=== PATIENT | male | born 1940 | race Caucasian/White ===

== ENCOUNTER → 2017-01-06 | Outpatient (CLI) | payer MEDICARE, BC | END | disposition home or self-care (01) | LOC: CFH 10:04 | PROVIDERS: ATTEND Nurse Practitioner Family | DX: Z13.820 Encounter for screening for osteoporosis (principal); M81.0 Age-related osteoporosis without current pathological fracture; S32.010A Wedge compression fracture of first lumbar vertebra, initial encounter for closed fracture; X58.XXXA Exposure to other specified factors, initial encounter; Y93.89 Activity, other specified; Y92.89 Other specified places as the place of occurrence of the external cause; Y99.8 Other external cause status | CPT/HCPCS: 77080 ==

== ENCOUNTER 2017-03-27 10:12 | Inpatient (IN) | payer MEDICARE, BC ==
[~2017-03-27] VITALS: Ht 185.4 cm; Wt 71.8 kg
[2017-03-27] MEDS ORDERED: ATOR10TA PO (10:31)
[2017-03-27] MEDS ORDERED: CARB1TAB22 PO (10:31)
[2017-03-27] MEDS ORDERED: METO50TA82 PO (10:31)
[2017-03-27] MEDS ORDERED: ASPI-515 PO (10:31)
[2017-03-27] MEDS ORDERED: ZOLE5INF IV (10:31)
[2017-03-27] MEDS ORDERED: CALC1CAP8 PO (10:31)
[2017-03-27] MEDS ORDERED: HYDROcodone/APAP 5/325 TABLET PO PRN (11:30)
[2017-03-27] MEDS ORDERED: KETOROLAC 30 MG/1 ML IM ONE (11:30)
[2017-03-27] MEDS ORDERED: HYDROcodone/APAP 5/325 TABLET ONE (11:46)
[2017-03-27] MEDS ORDERED: KETOROLAC 30 MG/1 ML ONE (11:46)
[2017-03-27 16:54] LABS: BLOOD UREA NITROGEN 13 mg/dL (7-18)
[2017-03-27] MEDS ORDERED: ONDANSETRON ODT 4 MG PO PRN (18:00)
[2017-03-27] MEDS ORDERED: ONDANSETRON 2MG/ML, 2ML IVPush PRN (18:00)
[2017-03-27] MEDS ORDERED: ACETAMINOPHEN 325 MG TABLET PO PRN (18:00)
[2017-03-27] MEDS ORDERED: MORPHINE SULFATE 4 MG/ML, 1ML IV PRN (18:30)
[2017-03-27] MEDS: PLEASE ENTER ALLERGIES MC SCH ×4 (19:21→19:22)
[2017-03-27] MEDS: CALCIUM/VITAMIN D3 250-125 TABLET PO SCH (20:47)
[2017-03-27] MEDS: HEPARIN 5,000 UNITS/ML, 1ML SQ SCH (20:48)
[2017-03-27] MEDS: ATORVASTATIN 10 MG TABLET PO SCH (20:48)
[2017-03-27 21:10] VITALS: BP 147/88
[2017-03-28 00:41] VITALS: BP 137/82
[2017-03-28] MEDS: HEPARIN 5,000 UNITS/ML, 1ML SQ SCH ×3 (05:34→20:02)
[2017-03-28 06:22] LABS: BLOOD UREA NITROGEN 21 mg/dL (7-18)
[2017-03-28 06:27] LABS: ASPARTATE AMINO TRANSFERASE 17 U/L (15-37)
[2017-03-28 08:00] VITALS: BP 156/88
[2017-03-28] MEDS: CARBIDOPA/LEVODOPA 25 MG/100 MG TABLET PO SCH (10:05)
[2017-03-28] MEDS: CALCIUM/VITAMIN D3 250-125 TABLET PO SCH ×2 (10:06→20:02)
[2017-03-28] MEDS: METOPROLOL TARTRATE 50 MG TABLET PO SCH (10:06)
[2017-03-28] MEDS: ASPIRIN 81 MG TABLET EC PO SCH (10:06)
[2017-03-28 12:00] VITALS: BP 160/93
[2017-03-28] MEDS ORDERED: POLYETHYLENE GLYCOL 17 GM PACKET NG ONE (12:00)
[2017-03-28 19:37] VITALS: BP 141/85
[2017-03-28] MEDS: ATORVASTATIN 10 MG TABLET PO SCH (20:02)
[2017-03-29 01:20] VITALS: BP 153/90
[2017-03-29] MEDS: HEPARIN 5,000 UNITS/ML, 1ML SQ SCH ×3 (05:55→20:08)
[2017-03-29 07:27] VITALS: BP 148/87
[2017-03-29] MEDS: ASPIRIN 81 MG TABLET EC PO SCH (08:40)
[2017-03-29] MEDS: METOPROLOL TARTRATE 50 MG TABLET PO SCH (08:40)
[2017-03-29] MEDS: CARBIDOPA/LEVODOPA 25 MG/100 MG TABLET PO SCH (08:41)
[2017-03-29] MEDS: CALCIUM/VITAMIN D3 250-125 TABLET PO SCH ×2 (08:41→20:08)
[2017-03-29 13:51] VITALS: BP 129/77
[2017-03-29 19:57] VITALS: BP 131/80
[2017-03-29] MEDS: ATORVASTATIN 10 MG TABLET PO SCH (20:08)
[2017-03-30 02:57] VITALS: BP 137/81
[2017-03-30] MEDS: HEPARIN 5,000 UNITS/ML, 1ML SQ SCH (06:22)
[2017-03-30 06:48] VITALS: BP 150/86
[2017-03-30] MEDS: CALCIUM/VITAMIN D3 250-125 TABLET PO SCH (08:01)
[2017-03-30] MEDS: ASPIRIN 81 MG TABLET EC PO SCH (08:01)
[2017-03-30] MEDS: CARBIDOPA/LEVODOPA 25 MG/100 MG TABLET PO SCH (08:02)
[2017-03-30] MEDS: METOPROLOL TARTRATE 50 MG TABLET PO SCH (08:02)
== END 2017-03-30 11:15 | disposition home or self-care (01) | DRG 543 ==
LOC: ED 10:56 → EDIP 16:45 → 3NE 18:52
PROVIDERS: ADMIT Internal Medicine; ATTEND Internal Medicine
DX: M80.08XA Age-related osteoporosis with current pathological fracture, vertebra(e), initial encounter for fracture (principal); E44.1 Mild protein-calorie malnutrition; S32.10XA Unspecified fracture of sacrum, initial encounter for closed fracture; G20 Parkinson's disease; G89.29 Other chronic pain; I10 Essential (primary) hypertension; I25.10 Atherosclerotic heart disease of native coronary artery without angina pectoris; K59.00 Constipation, unspecified; M48.06 Spinal stenosis, lumbar region; M53.3 Sacrococcygeal disorders, not elsewhere classified; M54.16 Radiculopathy, lumbar region; E78.5 Hyperlipidemia, unspecified; W19.XXXA Unspecified fall, initial encounter; Z95.5 Presence of coronary angioplasty implant and graft; Y93.89 Activity, other specified; Y92.89 Other specified places as the place of occurrence of the external cause; Z79.82 Long term (current) use of aspirin; Z79.899 Other long term (current) drug therapy; Z68.20 Body mass index [BMI] 20.0-20.9, adult
CPT/HCPCS: 36415; 72110; 72148; 72192; 80048; 80053; 81003; 82040; 85025; 96372; J1644; J1885

== ENCOUNTER 2018-02-02 11:22 | Inpatient (IN) | payer MEDICARE, BC ==
[~2018-02-02] VITALS: Ht 185.4 cm; Wt 78.4 kg
[~2018-02-02 11:22] MED LIST: ASPI-515 PO; ATOR10TA PO; CALC1CAP8 PO; CARB1TAB22 PO; METO50TA82 PO; ZOLE5INF IV
[2018-02-02] MEDS ORDERED: SODIUM CHLORIDE 0.9% 1,000 ML IV ONE (13:44)
[2018-02-02] MEDS ORDERED: SODIUM CHLORIDE FLUSH 10ML SYR IVF ONE (14:00)
[2018-02-02] MEDS ORDERED: MORPHINE SULFATE 4 MG/ML, 1ML IVPush PRN ×2 (14:00→15:30)
[2018-02-02 14:13] LABS: BASOPHILS # (AUTO) 0.02 x10^3/uL (0-0.1); BASOPHILS % (AUTO) 0 % (0-1); EOSINOPHILS # (AUTO) 0.02 x10^3/uL (0-0.4); EOSINOPHILS % (AUTO) 0 % (1-7); LYMPHOCYTES # (AUTO) 1.07 x10^3/uL (1-3.4); LYMPHOCYTES % (AUTO) 10 % (22-44); MD NO; MEAN CORPUSCULAR HEMOGLOBIN 31.4 pg (27.5-34.5); MEAN CORPUSCULAR HGB CONC 33.5 g/dL (33.2-36.2); MEAN CORPUSCULAR VOLUME 93.6 fL (81-97); MEAN PLATELET VOLUME 9.9 fL (7.4-10.4); MONOCYTES # (AUTO) 0.85 x10^3/uL (0.2-0.8); MONOCYTES % (AUTO) 8 % (2-9); NEUTROPHILS # (AUTO) 8.34 x10^3/uL (1.8-6.8); NEUTROPHILS % (AUTO) 81 % (42-75); PLATELET COUNT 114 x10^3/uL (130-400); RED BLOOD COUNT 4.68 x10^6/uL (4.38-5.82); RED CELL DISTRIBUTION WIDTH 13.2 % (9.4-14.8)
[2018-02-02 14:19] LABS: INTERNATIONAL NORMALIZED RATIO 1.04 (0.93-1.1); PROTHROMBIN TIME 10.8 Seconds (9.6-11.5)
[2018-02-02 14:23] LABS: ALBUMIN 3.4 g/dL (3.4-5.0); ANION GAP 8 mmol/L (5-15); CALCIUM 8.4 mg/dL (8.5-10.1); CHLORIDE 107 mmol/L (98-107)
[2018-02-02 14:24] LABS: CREATININE 0.89 mg/dL (0.7-1.3)
[2018-02-02] MEDS ORDERED: BISACODYL 10 MG SUPP PR PRN (14:30)
[2018-02-02] MEDS ORDERED: ONDANSETRON 2MG/ML, 2ML IVPush PRN ×2 (14:30→18:30)
[2018-02-02] MEDS ORDERED: ONDANSETRON ODT 4 MG PO PRN (14:30)
[2018-02-02] MEDS ORDERED: morphine SULFATE 10 MG/ML, 1ML IVPush PRN ×2 (14:30→18:30)
[2018-02-02] MEDS ORDERED: FENTANYL PF 250 MCG/5ML ONE (15:06)
[2018-02-02] MEDS ORDERED: PROPOFOL 10 MG/ML, 20ML ONE (15:07)
[2018-02-02] MEDS ORDERED: ROCURONIUM 10MG/ML,5ML ONE (15:07)
[2018-02-02] MEDS ORDERED: NEOSTIGMINE 1 MG/ML, 10ML ONE (15:08)
[2018-02-02] MEDS ORDERED: GLYCOPYRROLATE 0.4 MG/2 ML, 2ML ONE (15:08)
[2018-02-02] MEDS ORDERED: CEFAZOLIN 1,000 MG ONE ×2 (15:09)
[2018-02-02] MEDS ORDERED: WATER-INJECTION,STERILE 10 ML IV ONE (15:09)
[2018-02-02] MEDS ORDERED: HYDROmorphone 1 MG/ML, 1ML IV PRN (15:30)
[2018-02-02] MEDS ORDERED: OXYcodone 5 MG/5 ML ORAL.SOL UDC PO PRN (15:30)
[2018-02-02] MEDS ORDERED: ACETAMINOPHEN 325 MG TABLET PO PRN (15:30)
[2018-02-02] MEDS ORDERED: hydrALAzine 20 MG/ML, 1ML IV PRN (15:30)
[2018-02-02] MEDS ORDERED: ONDANSETRON ODT 8 MG PO PRN (15:30)
[2018-02-02] MEDS ORDERED: FENTANYL PF 100 MCG/2ML IV PRN (15:30)
[2018-02-02] MEDS ORDERED: PROMETHAZINE 25 MG SUPP PR PRN (15:30)
[2018-02-02] MEDS ORDERED: PROMETHAZINE 12.5 MG SUPP PR PRN (15:30)
[2018-02-02] MEDS ORDERED: MEPERIDINE/PF 25MG/0.5ML IVPush PRN (15:30)
[2018-02-02] MEDS ORDERED: LABETALOL 5MG/ML, 20ML IV PRN (15:30)
[2018-02-02] MEDS ORDERED: PROMETHAZINE 25 MG/ML, 1ML IV PRN (15:30)
[2018-02-02] MEDS ORDERED: ACETAMINOPHEN 650 MG/20.3 ML UDC ONE (17:25)
[2018-02-02] MEDS: D5%-0.45% NACL 1,000 ML IV SCH (18:36)
[2018-02-02 19:08] VITALS: BP 111/70
[2018-02-02] MEDS: CALCIUM/VITAMIN D3 250-125 TABLET PO SCH (22:25)
[2018-02-02] MEDS: DOCUSATE 100 MG CAPSULE PO SCH (22:25)
[2018-02-02] MEDS: ACETAMINOPHEN 325 MG TABLET PO PRN (22:25)
[2018-02-02] MEDS: ATORVASTATIN 10 MG TABLET PO SCH (22:25)
[2018-02-02] MEDS: CEFAZOLIN PMX 2GM/50ML 50 ML IVPB SCH (22:26)
[2018-02-03 00:15] VITALS: BP 116/66
[2018-02-03] MEDS: HYDROcodone/APAP 5/325 TABLET PO PRN ×2 (03:27→07:44)
[2018-02-03 05:12] VITALS: BP 106/69
[2018-02-03] MEDS: CARBIDOPA/LEVODOPA 25 MG/100 MG TABLET PO SCH (07:43)
[2018-02-03] MEDS: ENOXAPARIN 40 MG/0.4 ML SQ SCH (07:43)
[2018-02-03] MEDS: CEFAZOLIN PMX 2GM/50ML 50 ML IVPB SCH ×2 (07:43→15:06)
[2018-02-03] MEDS: CALCIUM/VITAMIN D3 250-125 TABLET PO SCH ×2 (07:44→21:17)
[2018-02-03] MEDS: SENNA/DOCUSATE TABLET PO SCH (07:44)
[2018-02-03] MEDS: ASPIRIN 81 MG TABLET EC PO SCH (07:44)
[2018-02-03] MEDS: DOCUSATE 100 MG CAPSULE PO SCH ×2 (07:45→21:17)
[2018-02-03 08:00] VITALS: BP 107/74
[2018-02-03] MEDS ORDERED: METOPROLOL TARTRATE 50 MG TABLET PO SCH (09:00)
[2018-02-03] MEDS: D5%-0.45% NACL 1,000 ML IV SCH ×2 (15:07)
[2018-02-03] MEDS ORDERED: ERGOCALCIFEROL 50,000 UNIT CAPSULE PO SCH (15:30)
[2018-02-03 16:18] VITALS: BP 122/72
[2018-02-03] MEDS: OXYcodone IR 5MG TABLET PO PRN (17:03)
[2018-02-03 18:53] VITALS: BP 112/67
[2018-02-03 20:00] VITALS: BP 112/69
[2018-02-03 20:46] LABS: MICROSCOPIC NOT IND
[2018-02-03 20:50] LABS: CULTURE INDICATED? NO
[2018-02-03] MEDS: ATORVASTATIN 10 MG TABLET PO SCH (21:16)
[2018-02-04 01:27] VITALS: BP 138/73
[2018-02-04 07:13] VITALS: BP 123/79
[2018-02-04] MEDS: METOPROLOL TARTRATE 50 MG TABLET PO SCH ×2 (09:00→22:04)
[2018-02-04] MEDS ORDERED: ERGOCALCIFEROL 50,000 UNIT CAPSULE PO SCH (09:30)
[2018-02-04] MEDS: ENOXAPARIN 40 MG/0.4 ML SQ SCH (10:44)
[2018-02-04] MEDS: CALCIUM/VITAMIN D3 250-125 TABLET PO SCH ×2 (10:45→22:05)
[2018-02-04] MEDS: DOCUSATE 100 MG CAPSULE PO SCH ×2 (10:45→22:05)
[2018-02-04] MEDS: ASPIRIN 81 MG TABLET EC PO SCH (10:45)
[2018-02-04] MEDS: CARBIDOPA/LEVODOPA 25 MG/100 MG TABLET PO SCH (10:45)
[2018-02-04] MEDS: SENNA/DOCUSATE TABLET PO SCH (10:49)
[2018-02-04 13:05] VITALS: BP 113/69
[2018-02-04] MEDS: POLYETHYLENE GLYCOL 17 GM PACKET PO PRN (15:51)
[2018-02-04] MEDS: OXYcodone IR 5MG TABLET PO PRN (15:53)
[2018-02-04 19:40] VITALS: BP 122/73
[2018-02-04] MEDS: ATORVASTATIN 10 MG TABLET PO SCH (22:05)
[2018-02-05 02:43] VITALS: BP 109/67
[2018-02-05] MEDS: POLYETHYLENE GLYCOL 17 GM PACKET PO PRN (02:55)
[2018-02-05 06:25] VITALS: BP 115/67
[2018-02-05] MEDS: ENOXAPARIN 40 MG/0.4 ML SQ SCH ×2 (09:00→10:36)
[2018-02-05] MEDS: DOCUSATE 100 MG CAPSULE PO SCH ×2 (10:36→21:19)
[2018-02-05] MEDS: SENNA/DOCUSATE TABLET PO SCH (10:36)
[2018-02-05] MEDS: ASPIRIN 81 MG TABLET EC PO SCH (10:36)
[2018-02-05] MEDS: METOPROLOL TARTRATE 50 MG TABLET PO SCH ×2 (10:36→21:20)
[2018-02-05] MEDS: CALCIUM/VITAMIN D3 250-125 TABLET PO SCH ×2 (10:36→21:19)
[2018-02-05] MEDS: CARBIDOPA/LEVODOPA 25 MG/100 MG TABLET PO SCH (10:36)
[2018-02-05 12:11] VITALS: BP 110/66
[2018-02-05] MEDS: ACETAMINOPHEN 325 MG TABLET PO PRN (17:05)
[2018-02-05 19:17] VITALS: BP 110/69
[2018-02-05] MEDS: ATORVASTATIN 10 MG TABLET PO SCH (21:19)
[2018-02-06 02:20] VITALS: BP 103/68
[2018-02-06 07:49] VITALS: BP 117/71
[2018-02-06] MEDS ORDERED: OXYC5TAB3 PO (07:54)
[2018-02-06] MEDS ORDERED: POLY17PO5 PO (07:54)
[2018-02-06] MEDS ORDERED: ENOX40SY4 SQ (07:54)
[2018-02-06] MEDS ORDERED: ERGO500017 PO (07:54)
[2018-02-06] MEDS ORDERED: METO50TA82 PO (07:54)
[2018-02-06] MEDS: CARBIDOPA/LEVODOPA 25 MG/100 MG TABLET PO SCH (08:12)
[2018-02-06] MEDS: ENOXAPARIN 40 MG/0.4 ML SQ SCH ×2 (08:12→09:00)
[2018-02-06] MEDS: ASPIRIN 81 MG TABLET EC PO SCH (08:12)
[2018-02-06] MEDS: METOPROLOL TARTRATE 50 MG TABLET PO SCH (08:12)
[2018-02-06] MEDS: CALCIUM/VITAMIN D3 250-125 TABLET PO SCH (08:12)
[2018-02-06] MEDS: DOCUSATE 100 MG CAPSULE PO SCH (08:12)
[2018-02-06] MEDS: SENNA/DOCUSATE TABLET PO SCH (08:14)
[2018-02-06 12:56] VITALS: BP 113/69
== END 2018-02-06 13:28 | DRG 470 ==
LOC: ED 11:24 → EDIP 13:55 → INTOOBSV 13:55 → 4NOR 17:44 → OBSVTOIN 02-03 13:44
PROVIDERS: ADMIT Orthopaedic Surgery; ATTEND Internal Medicine
PROC: 0SRS019 Replacement of Left Hip Joint, Femoral Surface with Metal Synthetic Substitute, Cemented, Open Approach (ICD-10-PCS; principal; 2018-02-02 21:30)
DX: S72.002A Fracture of unspecified part of neck of left femur, initial encounter for closed fracture (principal); D69.6 Thrombocytopenia, unspecified; G20 Parkinson's disease; E55.9 Vitamin D deficiency, unspecified; I10 Essential (primary) hypertension; M54.9 Dorsalgia, unspecified; I25.10 Atherosclerotic heart disease of native coronary artery without angina pectoris; K59.00 Constipation, unspecified; W01.0XXA Fall on same level from slipping, tripping and stumbling without subsequent striking against object, initial encounter; Z66 Do not resuscitate; Z79.899 Other long term (current) drug therapy; Z83.3 Family history of diabetes mellitus; I25.2 Old myocardial infarction; Z95.5 Presence of coronary angioplasty implant and graft; Y93.89 Activity, other specified; Y92.89 Other specified places as the place of occurrence of the external cause
CPT/HCPCS: 36415; 80048; 81003; 82040; 82306; 82330; 82550; 85014; 85018; 85025; 85610; 85730; 93005; 99285; C1713; G0378; J0690; J1650; J2704; J2710; J3010; C1762; C1776